=== PATIENT | male | born 2000 | race Caucasian/White ===

== ENCOUNTER 2021-06-08 21:38 | Emergency (ER) | payer SELFPAY ==
[2021-06-08] VITALS (16 sets, daily range): BP systolic 122–148; BP diastolic 76–100; PULSE 87–117; RESP 11–30; TEMP 37.5; O2SAT 97–99
--- NOTE | 2021-06-08 21:30 | RT.EKG_ITS ---
APPROVED REPORT Exam: Resting ECG Reason for Exam: short of breath Patient Location: E HR:88 bpm ECG Measurements Heart Rate 88 AXIS AR 153 P 54 QRSd 90 QRS 53 QT 319 T 13 QTc 386 Conclusion Sinus rhythm...normal P axis, V-rate 60- 99 ST elev, probable normal early repol pattern...ST elevation, age<55 Physician: no stemi, Q3T3 present
--- NOTE | 2021-06-08 22:00 | DI.CT_ITS ---
Exam(s) CT CHEST PE CTA EXAM: CT CHEST PE CTA CLINICAL HISTORY: sob, cough, chest pain, febrile. TECHNIQUE: Imaging Protocol: Axial CT angiography was performed with multi-slice acquisition and mu lti-planar and/or 3D reconstructions. CONTRAST MATERIAL: Intravenous: Omnipaque 350 Contrast volume:100 mL COMPARISON: No exams were available for comparison FINDINGS: The examination is limited due to patient motion artifact. Tracheobronchial tree: Patent where visualized. Pulmonary parenchyma: No consolidation or dominant measurable mass. No architectural distortion. Ther e is a 0.5 cm noncalcified nodule associated with the right minor fissure. Pulmonary Arteries: No evidence of filling defect to suggest pulmonary emboli. Mediastinum and Evelia: No dominant adenopathy or fluid collection. Visualized thyroid gland: Unremarkable. Pleura: No effusion or pneumothorax. Heart: The heart is not dilated. No coronary artery calcifications are seen. No pericardial effusion. Aorta: Thoracic aorta non-dilated. Upper abdomen: Fatty infiltration of the liver. Soft tissues: Unremarkable. Bones: Within normal limits. IMPRESSION: No evidence of pulmonary embolism, thoracic aortic dissection or aneurysm. RADIATION DOSE DELIVERED: 563.71mGy.cm Total DLP DATA REPOSITORY: All CT scans at this facility are submitted to the National Radiology Data Registry (NRDR) Dose Index Registry (DIR) with the [employer] (A[employer]). RADIATION OPTIMIZATION: All CT scans at this facility use at least one of these dose optimization te chniques: automated exposure control; mA and/or kV adjustment per patient size (includes targeted exa ms where dose is matched to clinical indication); or iterative reconstruction.
--- NOTE | 2021-06-08 22:00 | DI.CT_ITS ---
Exam(s) CT HEAD WO EXAM: CT HEAD WO CLINICAL HISTORY: headache 3 weeks, r/o mass. TECHNIQUE: Imaging Protocol: Axial computed tomography images with coronal and sagittal reformatted images were created and reviewed COMPARISON: No exams were available for comparison FINDINGS: Ventricles and Extra axial spaces: Normal in size and morphology for the patient's age. Hemorrhage: None. Cerebral parenchyma: Normal. Midline shift: None. Brainstem/Cerebellum: Normal. Calvarium: Normal. Visualized Paranasal sinuses/Mastoids: Clear. Soft Tissues: Unremarkable. IMPRESSION: No acute intracranial process. RADIATION DOSE DELIVERED: 818.74mGy.cm Total DLP DATA REPOSITORY: All CT scans at this facility are submitted to the National Radiology Data Registry (NRDR) Dose Index Registry (DIR) with the [employer] (ACR). RADIATION OPTIMIZATION: All CT scans at this facility use at least one of these dose optimization te chniques: automated exposure control; mA and/or kV adjustment per patient size (includes targeted exa ms where dose is matched to clinical indication); or iterative reconstruction.
--- NOTE | 2021-06-08 22:06 | W.ED.GENAD ---
Discharge Plan Disposition Patient Disposition: HOME Condition: Stable Discharge Details Clinical Impression: Incidental pulmonary nodule, Fever, Malaise Primary Care Provider: Unknown,Unknown ED Provider: Collin Magaña Home Meds and New Rx's Prescriptions: New doxycycline hyclate 100 mg tablet 100 mg PO BID Qty: 20 RF: 0 Continued omeprazole 20 mg Capsule,Delayed Release(Dr/Ec) 20 mg PO DAILY RF: 0 Discharge Instructions Instructions: Fever in Adults (ED) Additional Instructions: At this time it is unclear as to what the exact etiology of your symptoms from. Your CAT scan, flu test, Covid test, and mono test were negative. Your blood work is stable currently. You may be suffering from a mild virus, but we are still waiting on the results of the tickborne illness panel. In the meantime please take the antibiotic doxycycline as prescribed. It is been sent to your [facility] pharmacy. Please do not take the medication on an empty stomach as it can cause nausea and vomiting. Avoid any calcium supplements while taking the medication as this will diminish its efficacy. As we discussed together you have elected to hold off on the lumbar puncture for the time being, however if your symptoms persist or worsen in any way please return immediately for reevaluation and reassessment for potential need for lumbar puncture. Please relax for the next few days, drink plenty of fluids, stay well-hydrated, and take Tylenol or Motrin as needed for fever or pain. As we discussed together you did have an incidental pulmonary nodule that was noted on your CAT scan. It is very small. This is likely benign, but it would be prudent to follow-up closely with your primary care provider in the next 6 to 12 months to have it reassessed with repeat imaging. If you notice any worsening of your symptoms, or any new symptoms such as vomiting, diarrhea, fever, chills, shortness of breath, chest pain, numbness, weakness, or fainting , please return immediately to the emergency department for reevaluation. Please follow up with your primary care provider as soon as possible for reassessment and reevaluation. As always, it was a pleasure participating in your medical care today. Stand Alone Forms: Work Release Medical Decision Making This is a 20 year old male who aside for GERD denies any significant past medical history who did receive his first Covid vaccine in April, and had his second shot a few weeks ago. He presents today for 2 to 3 weeks of fever, chills, cough, shortness of breath, headache, myalgias and fatigue. Patient states his symptoms have been on and off, and unremitting. He denies any other sick contacts. He denies any IV or illicit drug use. He does admit to MSM with his fianc?e/male partner, but does state that he and his partner regularly tested for HIV denies any history of STDs. He also admits to mild burning with urination. He denies any hemoptysis or diarrhea. He does admit to occasional intermittent vomiting but no abdominal pain. He denies any relieving factors of his symptoms. No other complaints at this time. No other modifying factors. Physical exam demonstrates minimal neck tenderness. No severe headache. Negative Kernig sign. No abdominal tenderness, unremarkable lung sounds, patient is febrile and tachycardic though. Differential is broad but include HIV and susceptible infection, pneumonia, Covid, UTI. Pulmonary embolus and subsequent pneumonia is also on the differential with the patient's shortness of breath and chest pain. Less likely is meningitis. We will rehydrate, give NSAIDs, evaluate for concerning abnormalities, get CT imaging of the chest and head, monitor closely and reassess. Additionally the patient does have 2 small bite gallagher on the patient's right forearm. He states that he was bitten yesterday by his neighbors dog. They are notably small with no redness drainage or erythema. He also states that his other symptoms started well before this. Additionally he states that he got his tetanus shot updated, and he was able to personally confirm the shot and immunization status of the person's dog that bit him. This does not seem to be actively related to the patient's current symptomatology. EKG does show evidence of Q 3 T3, and an inverted T wave in V1, but no other abnormalities. No evidence of STEMI. 12:53 AM Laboratory and imaging work-up has returned. CT head is negative for acute process, CTA chest is negative for pulmonary embolism pneumonia or other significant abnormality. Spleen is slightly enlarged, small nodule is noted, and this was conveyed to the patient. Laboratory work-up shows low white count, no left shift or bandemia. Venous blood gas relatively unremarkable. Mild evidence of tachypnea. Electrolytes normal, renal function normal, transaminases minimally high. Troponin normal. Procalcitonin minimally elevated at 0.2, CRP elevated at 1.9 however ESR is normal. Urinalysis negative. Pending results for gonorrhea and chlamydia. Pending tick and Lyme panel. Covid test negative, HIV test negative, mono screen negative. Upon reassessment of the patient patient's heart rate has mildly improved after liter of fluid. Temperature has diminished. Patient does feel slightly better. Still does admit to mild headache, but denies it being the worst headache of his life. The patient certainly does not look toxic in appearance at all, his clinical assessment does seem to indicate some sort of mild infectious etiology. With the patient's mild transaminitis, my high suspicion is for a viral etiology versus a tick or Lyme etiology. With the patient's mild headache, bili is not clinically demonstrate strong evidence of meningitis I did discuss with the patient risks and benefits of lumbar puncture. We had a prolonged discussion together, and we also included on the discussion the patient's fianc?. At this time through notable discussion, weighing the risks and benefits, and a shared decision making process the patient has decided to hold off on the lumbar puncture at this time. Patient is of an appropriate age to make decisions. The patient is of sound mind, appears clinically sober, and has capacity to make decisions by my clinical exam. Respecting the patient's wishes we will hold off on the procedure. Concern for tickborne illness start the patient on doxycycline. The dog bite on the patient's arm shows no evidence of infection whatsoever at this time clinically. With the patient demonstrating no evidence of the clinically septic, and appearing pulmonary mildly ill I do feel that discharge is appropriate at this time. I did discuss that with the patient that if the changes his mind at any point or continues to have symptoms he should return for reevaluation for potential lumbar puncture as was discussed and recommended currently. I have extensively reviewed the treatment plan and discharge instructions with the patient and their family. I have addressed all patient concerns at this time. The patient and family was made aware of what symptoms to monitor for that would warrant a return to the emergency department. Discussed the plan with the patient and family, they demonstrate verbal understanding and agreement with our assessment and plan at this time. The documentation in this chart was dictated using [email or web address] dictation software. Please excuse any dictation errors. FINDINGS: Brain: Normal. No hemorrhage. Unremarkable white matter. No mass effect. Cerebral ventricles: No ventriculomegaly. Paranasal sinuses: Visualized sinuses are unremarkable. No fluid levels. Mastoid air cells: Visualized mastoid air cells are well aerated. Bones/joints: Unremarkable. No acute fracture. Soft tissues: Unremarkable. IMPRESSION: No acute intracranial abnormality. Thank you for allowing us to participate in the care of your patient. Dictated and Authenticated by: Harpreet Chao MD 06/08/2021 11:24 PM Eastern Time ([place] & [place]) FINDINGS: Pulmonary arteries: No pulmonary emboli. Aorta: No aortic aneurysm. No aortic dissection. Lungs: 3 mm right lung nodule, image 25. Pleural spaces: Unremarkable. No pneumothorax. No pleural effusion. Heart: No cardiomegaly. No pericardial effusion. Lymph nodes: Unremarkable. No enlarged lymph nodes. Liver: Hepatic steatosis. Spleen: Enlarged spleen measures 15 centimetres in its longest dimension. Bones/joints: Unremarkable. No acute fracture. Soft tissues: Unremarkable. IMPRESSION: No pulmonary emboli. Thank you for allowing us to participate in the care of your patient. Dictated and Authenticated by: Callum Pedersen MD 06/08/2021 11:38 PM Eastern Time ([place] & [place]) HPI General Date/Time Provider Initiated Documentation: 06/08/21 21:39. HPI Narrative: This is a 20 year old male who aside for GERD denies any significant past medical history who did receive his first Covid vaccine in April, and had his second shot a few weeks ago. He presents today for 2 to 3 weeks of fever, chills, cough, shortness of breath, headache, myalgias and fatigue. Patient states his symptoms have been on and off, and unremitting. He denies any other sick contacts. He denies any IV or illicit drug use. He does admit to MSM with his fianc?e/male partner, but does state that he and his partner regularly tested for HIV denies any history of STDs. He also admits to mild burning with urination. He denies any hemoptysis or diarrhea. He does admit to occasional intermittent vomiting but no abdominal pain. He denies any relieving factors of his symptoms. No other complaints at this time. No other modifying factors. Related Data Home Medications Medication Instructions Recorded Confirmed omeprazole 20 mg PO DAILY 06/08/21 06/08/21 doxycycline hyclate 100 mg PO BID #20 tab 06/09/21 Previous Rx's Medication Instructions Recorded doxycycline hyclate 100 mg PO BID #20 tab 06/09/21 Allergies Allergy/AdvReac Type Severity Reaction Status Date / Time atomoxetine [From Strattera] Allergy Unverified 06/09/21 01:36 gabapentin Allergy Unverified 06/09/21 01:36 ziprasidone [From Geodon] Allergy Unverified 06/09/21 01:36 ranitidine [From Zantac] AdvReac Unverified 06/09/21 01:36 Review of Systems All systems reviewed & are unremarkable except as noted in HPI and below PFSH Social History Smoking/Tobacco Use Status: Never Smoking risk assessment performed?: Yes Alcohol Intake: current Alcohol Intake frequency: holidays/special occasions only Alcohol type: beer Drug use: Occasionally Substance use type: marijuana Do you feel safe at home: Yes Do you feel safe in your relationship?: Yes Exam Narrative Exam Narrative: 1.Const: Well-nourished, Well-developed, appearing stated age 2.Eyes: PERRL, no conjunctival injection, and symmetrical lids. 3.ENT: Atraumatic external nose and ears. Moist MM. Neck: Symmetric, trachea midline, No thyromegaly. No nuchal rigidity but mild neck soreness. Mild pain with extreme degree of flexion of the neck, however negative Kernig sign. 4.CVS: +S1/S2, No murmurs or gallops. Peripheral pulses 2+ and equal in all extremities. Brisk capillary refill in all extremities. 5.RESP: Unlabored respiratory effort. Clear to auscultation bilaterally. No wheezes rales or rhonchi 6.GI: Soft, Nontender/Nondistended, No hepatosplenomegaly. No guarding or rebound. Genital was examined with female nurse Esperanza at bedside. No urethral discharge. No penile tenderness 7.MSK: Normocephalic/Atraumatic, Extremities w/o deformity or ttp No cyanosis or clubbing, Normal movement of all extremities 8.Skin: Warm, Dry. No rashes or lesions. There are 2 small bite to the gallagher that are notably superficial on the patient's right forearm, no swelling redness tenderness or drainage. 9.Neuro: inspector wreath II-XII grossly intact. Sensation grossly intact, no focal neurologic deficits. 10.Psych: (AAO) x3. Appropriate mood and affect Course Lab/Test Results Lab/Test Results: 06/08/21 22:03 Blood Blood Culture - Pending 06/08/21 22:03 Blood Blood Culture - Pending
[2021-06-08] MEDS: Normal Saline 1,000 ML 1000 ML IV (22:25)
[2021-06-08 22:29] LABS: BE (Venous) 1 mmol/L (-2-3); HCO3 (Venous) 26 mmol/L (23-28); Lactate 1.4 mmol/L (0.6-1.4); O2 Sat (Venous) 84 %; TCO2 (Venous) 23 mmol/L (24-29); pCO2 (Venous) 38 mmHg (41-51); pH (Venous) 7.44 (7.31-7.41); pO2 (Venous) 45 mmHg
[2021-06-08 22:32] LABS: Abs Immature Grans 0.04 10^3/uL (0.0-0.06); HCT 40.4 % (40.0-50.0); HGB 13.7 g/dL (13.5-17.5); MCH 28.4 pg (27.0-33.0); MCHC 33.9 % (32.0-36.0); MCV 83.6 fL (80-95); MPV 9.4 fL (8.0-11.0); Nucleated RBC 0 %; Platelet Count 216 10^3/uL (130-400); RBC 4.83 10^6/uL (4.36-5.78); RDW-SD 36.5 fL; WBC 7.78 10^3/uL (4.4-10.8)
[2021-06-08 22:35] LABS: ESR 5 mm/hr (0-15)
[2021-06-08 22:41] LABS: Bilirubin Negative (Negative); Blood Negative (Negative); Clarity Clear (Clear); Glucose Negative (Negative); Ketones Negative (Negative); Leukocyte Esterase Negative (Negative); Nitrite Negative (Negative)
[2021-06-08 22:45] LABS: C-Reactive Protein 1.94 mg/dL (0.0-0.3)
[2021-06-08 22:48] LABS: ALT 93 U/L (16-63); AST 76 U/L (15-37); Alkaline Phosphatase 152 U/L (46-116); BUN 13 mg/dL (7-18); Bilirubin, Total 0.6 mg/dL (0.2-1.0); Calcium 8.6 mg/dL (8.5-10.1); Chloride 102 mmol/L (98-107); Glucose 107 mg/dL (74-106); Potassium 3.8 mmol/L (3.5-5.1); Sodium 137 mmol/L (136-145); Total Protein 7.8 g/dL (6.4-8.2); Troponin I < 0.05 ng/mL (<0.06)
[2021-06-08] MEDS: Omnipaque 350 MG/ML 100 ML BTL IV (22:55)
[2021-06-08] MEDS: Normal Saline Flush 10 ML SYR IVP (22:56)
[2021-06-08 22:57] LABS: Absolute Eosinophil Count 0.23 10^3/uL (0.0-0.7); Absolute Lymphocyte Count 2.33 10^3/uL (1.2-3.4); Absolute Monocyte Count 0.93 10^3/uL (0.1-0.8); Absolute Neutrophil Count 4.28 10^3/uL (1.2-6.7); Atypical Lymphocytes % 6
[2021-06-08 22:58] LABS: Diff Comment Manual Differential; RBC Morphology Normal
[2021-06-08 23:02] LABS: Procalcitonin 0.2 ng/mL
[2021-06-08] MEDS: Ketorolac 15 MG/ML VIAL IVP (23:07)
--- NOTE | 2021-06-08 23:24 | DI.VRAD_ITS ---
PROCEDURE INFORMATION: Exam: CT Head Without Contrast Exam date and time: 06/08/2021 10:05 PM Age: 20 years old Clinical indication: Other: Headache 3 weeks, R/O mass TECHNIQUE: Imaging protocol: Computed tomography of the head without contrast. Radiation optimization: All CT scans at this facility use at least one of these dose optimization techniques: automated exposure control; mA and/or kV adjustment per patient size (includes targeted exams where dose is matched to clinical indication); or iterative reconstruction. COMPARISON: No relevant prior studies available. FINDINGS: Brain: Normal. No hemorrhage. Unremarkable white matter. No mass effect. Cerebral ventricles: No ventriculomegaly. Paranasal sinuses: Visualized sinuses are unremarkable. No fluid levels. Mastoid air cells: Visualized mastoid air cells are well aerated. Bones/joints: Unremarkable. No acute fracture. Soft tissues: Unremarkable. IMPRESSION: No acute intracranial abnormality. Dictated and Authenticated by: Harpreet Parnell MD. Ordering:ESTELA Polanco MD
--- NOTE | 2021-06-08 23:38 | DI.VRAD_ITS ---
PROCEDURE INFORMATION: Exam: CTA Chest With Contrast Exam date and time: 06/08/2021 10:05 PM Age: 20 years old Clinical indication: Other: SOB, cough, chest pain, febrile TECHNIQUE: Imaging protocol: Computed tomographic angiography of the chest with contrast. 3D rendering (Not supervised by radiologist): MIP and/or 3D reconstructed images were created by the technologist. Radiation optimization: All CT scans at this facility use at least one of these dose optimization techniques: automated exposure control; mA and/or kV adjustment per patient size (includes targeted exams where dose is matched to clinical indication); or iterative reconstruction. Contrast material: 0MIPAQUE 350; Contrast volume: 100 ml; Contrast route: INTRAVENOUS (IV); COMPARISON: No relevant prior studies available. FINDINGS: Pulmonary arteries: No pulmonary emboli. Aorta: No aortic aneurysm. No aortic dissection. Lungs: 3 mm right lung nodule, image 25. Pleural spaces: Unremarkable. No pneumothorax. No pleural effusion. Heart: No cardiomegaly. No pericardial effusion. Lymph nodes: Unremarkable. No enlarged lymph nodes. Liver: Hepatic steatosis. Spleen: Enlarged spleen measures 15 centimetres in its longest dimension. Bones/joints: Unremarkable. No acute fracture. Soft tissues: Unremarkable. IMPRESSION: No pulmonary emboli. Dictated and Authenticated by: Callum Pedersen MD. Ordering:ESTELA Polanco MD
[2021-06-08 23:44] LABS: COVID-19 PCR Negative (Negative); Source Nasal/Nares
[2021-06-08 23:55] LABS: Mono Screening Negative (Negative)
[2021-06-09] VITALS (11 sets, daily range): BP systolic 122–144; BP diastolic 55–80; PULSE 73–102; RESP 15; TEMP 36.9; O2SAT 96–98
[2021-06-09] MEDS: LORazepam 2 MG/ML VIAL 0.5 MG IVP (00:53)
[2021-06-09 01:05] LABS: HIV 1/2 Ab Rapid Negative (Negative)
[2021-06-09] MEDS: Doxycycline Hyclate 100 MG, 2 CAPS/BTL PO (01:08)
[2021-06-10 10:11] LABS: HIV-1/2 Ag & Ab Screen Negative (Negative)
[2021-06-10 10:24] LABS: Lyme Ab w Rflx to Lyme Confirm Negative (Negative)
[2021-06-10 14:45] LABS: Chlamydia Result Negative (Negative); GC Result Negative (Negative)
[2021-06-11 18:02] LABS: Anaplasma phagocytophilum Negative (Negative); B. miyamotoi PCR Negative (Negative); Babesia divergens/MO-1 Negative (Negative); Babesia duncani Negative (Negative); Babesia microti Negative (Negative); Ehrlichia chaffeensis Negative (Negative); Ehrlichia ewingii/canis Negative (Negative); Ehrlichia muris eauclairensis Negative (Negative)
== END 2021-06-09 01:20 | disposition home or self-care (01) ==
PROVIDERS: Emergency Provider Student in an Organized Health Care Education/Training Program
DX: R91.1 Solitary pulmonary nodule (principal); R50.9 Fever, unspecified; R53.81 Other malaise
CPT/HCPCS: 36415; 71275; 80053; 82805; 84145; 85652; 87040; 87389; 87449; 87491; 87591; 87635; 87798; 93005; 96361; 96374; 96375; 99285; 70450; 81003; 83605; 84484; 85025; 86140; 86308; 86618; 93010; 99284; J1885; J2060; J3490